=== PATIENT | male | born 1960 | race Two or more races ===

== ENCOUNTER 2016-12-11 20:35 | Emergency (ER) | payer MEDICAID ==
[2016-12-11] MEDS ORDERED: BENZONATATE 100 MG CAPSULE PO ONE (21:16)
[2016-12-11] MEDS ORDERED: OXYCODONE HCL IR 5 MG TABLET PO ONE (21:16)
--- NOTE | 2016-12-11 21:20 | ER Document Report ---
ED General - General Chief Complaint: Cough Stated Complaint: ABDOMINAL PAIN/LOSS OF APPETITE Time Seen by Provider: 12/11/16 21:08 Notes: Patient is a 56-year-old male who comes emergency department for chief complaint of cough, he states he has had this for several days, he has coughing episodes where he feels short of breath, he states when he is not coughing he is not short of breath. He has felt some chills. Denies past medical history of pneumonia. Past medical history of liver failure, on Lasix and Spironolactone, hypertension takes tramadol for pain. He reports some abdominal pains but states these are chronic. He denies chest pain, vomiting, abdominal or leg swelling. He is visiting friends, he is from [place]. He has a friend at bedside. Patient speaks Syriac fluently. TRAVEL OUTSIDE OF THE [place] IN LAST 30 DAYS: No - Related Data Home Medications: Current Home Medications Furosemide [Furosemide] 20 mg PO DAILY 12/11/16 [History] Nadolol [Nadolol] 20 mg PO DAILY 12/11/16 [History] Propranolol HCl [Inderal 20 mg Tablet] 10 mg PO DAILY 12/11/16 [History] Ranitidine HCl 150 mg PO BID 12/11/16 [History] Spironolactone [Spironolactone] 25 mg PO DAILY 12/11/16 [History] Tramadol HCl [Tramadol HCl] 50 mg PO BID PRN 12/11/16 [History] Past Medical History - General Information source: Patient - Social History Smoking Status: Former Smoker Frequency of alcohol use: None Drug Abuse: None Lives with: Family Family History: Reviewed & Not Pertinent Patient has suicidal ideation: No Patient has homicidal ideation: No - Past Medical History Cardiac Medical History: Reports: Hx Hypertension Renal/ Medical History: Denies: Hx Peritoneal Dialysis GI Medical History: Reports: Hx Liver Failure Surgical Hx: Negative - Immunizations Hx Diphtheria, Pertussis, Tetanus Vaccination: Yes Review of Systems - Review of Systems Constitutional: No symptoms reported EENT: No symptoms reported Cardiovascular: See HPI Respiratory: See HPI Gastrointestinal: No symptoms reported Genitourinary: No symptoms reported Male Genitourinary: No symptoms reported Musculoskeletal: No symptoms reported Skin: No symptoms reported Hematologic/Lymphatic: No symptoms reported Neurological/Psychological: No symptoms reported Physical Exam - Vital signs Vitals: Temp Pulse Resp BP Pulse Ox 99.1 F 78 17 118/75 93 12/11/16 20:47 12/11/16 20:47 12/11/16 20:47 12/11/16 20:47 12/11/16 20:47 Interpretation: Normal - General General appearance: Appears well, Alert In distress: None - alert and well appearing - HEENT Head: Normocephalic, Atraumatic Eyes: Normal Conjunctiva: Normal Extraocular movements intact: Yes Eyelashes: Normal Pupils: PERRL Mouth/Lips: Normal Mucous membranes: Normal Pharynx: Normal Neck: Normal - Respiratory Respiratory status: No respiratory distress. No: Respiratory distress, Labored , Pursed lip breathing, Tachypnea Chest status: Nontender. No: Tender Breath sounds: Nonproductive cough - occassional mild cough. No: Decreased air movement, Rales, Rhonchi, Stridor, Wheezing Chest palpation: Normal - Cardiovascular Rhythm: Regular. No: Tachycardia Heart sounds: Normal auscultation, S1 appreciated, S2 appreciated Murmur: No - Abdominal Inspection: Normal Distension: No distension Bowel sounds: Normal Tenderness: Nontender Organomegaly: No organomegaly - Back Back: Normal, Nontender - Extremities General upper extremity: Normal inspection, Nontender, Normal color, Normal ROM , Normal temperature General lower extremity: Normal inspection, Nontender, Normal color, Normal ROM , Normal temperature, Normal weight bearing. No: Jane's sign - Neurological Neuro grossly intact: Yes Cognition: Normal Orientation: AAOx4 [place] Coma Scale Eye Opening: Spontaneous [place] Coma Scale Verbal: Oriented [place] Coma Scale Motor: Obeys Commands [place] Coma Scale Total: 15 Speech: Normal Motor strength normal: LUE, RUE, LLE, RLE Sensory: Normal - Psychological Associated symptoms: Normal affect, Normal mood - Skin Skin Temperature: Warm Skin Moisture: Dry Skin Color: Normal Course - Re-evaluation Re-evalutation: EKG with borderline left axis deviation, no ischemic changes or abnormalities noted, cardiac enzymes negative. Chemistry generally unremarkable. CBC shows some leukopenia although absolute neutrophils are not low, some anemia, nonspecific. Chest x-ray showing left lower lobe patchy infiltrate consistent with pneumonia , this is consistent with patient's clinical presentation. Given Levaquin. Blood cultures pending. Patient asking to go home. Patient with slightly low oxygen levels at 93-94% on room air, patient with occassional coughing episodes but no distress, however lungs are clear to auscultation, patient has no tachypnea or labored breathing, and patient ambulates without any difficulty. Well appearing patient. Blood pressure is borderline low. Patient was initially medicated for symptoms, then hours later (CBC hemolyzed twice) given a dose of Levaquin. Patient states he feels normal now, states he feels good and he wants to leave to be medicated at home. Patient was ambulated further, oxygen did drop down into the 80s, although patient had no labored breathing, no tachypnea, actually appeared excellent doing so. Unsure of patient's baseline. He is unsure as well, but he states he felt good, did well. He honestly appears clinically normal. Discussed admission for pneumonia but patient states he does not want to be admitted, he wants to be treated with antibiotics at home, and if he feels worse he will return. Discussed at length, patient states he will return if he worsens in any way. - Vital Signs Vital signs: Temp Pulse Resp BP Pulse Ox 97.9 F 68 16 95/66 L 94 12/12/16 00:18 12/12/16 00:18 12/12/16 00:18 12/12/16 02:01 12/12/16 00:42 - Laboratory Result Diagrams: 12/11/16 23:11 12/11/16 21:40 Laboratory results interpreted by me: 12/11/16 12/11/16 21:40 23:11 WBC 2.9 L Hgb 10.7 L Hct 34.3 L MCV 71 L MCH 22.1 L MCHC 31.3 L RDW 22.0 H Seg Neuts % (Manual) 39 L Band Neutrophils % 1 L Abs Neuts (Manual) 1.2 L Creatine Kinase 28 L Discharge - Discharge Clinical Impression: Cough Pneumonia Qualifiers: Pneumonia type: due to unspecified organism Laterality: left Lung location: lower lobe of lung Qualified Code(s): J18.1 - Lobar pneumonia, unspecified organism Disposition: HOME, SELF-CARE Additional Instructions: Workup is consistent with pneumonia. Take the Levaquin antibiotic as prescribed. Rest. Continue current medications. Follow up with Primary Care. Return to the ED if you develop any concerning or worsening symptoms - difficulty breathing, chest pain, vomiting, spiking fever, etc. Prescriptions: Doxycycline Hyclate 100 mg PO BID #14 capsule
--- NOTE | 2016-12-11 22:03 | RADIOLOGY REPORT (SQ) ---
EXAM DESCRIPTION: CHEST PA/LAT COMPLETED DATE/TIME: 12/11/2016 9:54 pm REASON FOR STUDY: persistent cough, short of breath COMPARISON: None. EXAM PARAMETERS: NUMBER OF VIEWS: two views TECHNIQUE: Digital Frontal and Lateral radiographic views of the chest acquired. RADIATION DOSE: NA LIMITATIONS: none FINDINGS: LUNGS AND PLEURA: Patchy left lower lobe airspace disease. Lungs and pleural spaces other bullard clear. MEDIASTINUM AND HILAR STRUCTURES: No masses or contour abnormalities. HEART AND VASCULAR STRUCTURES: Heart normal size. No evidence for failure. BONES: No acute findings. HARDWARE: None in the chest. OTHER: No other significant finding. IMPRESSION: PATCHY LEFT LOWER LOBE AIRSPACE DISEASE SUSPICIOUS FOR PNEUMONIA. RECOMMEND FOLLOWUP RA DIOGRAPHS 4 TO 6 WEEKS TO ENSURE RESOLUTION. TECHNICAL DOCUMENTATION: JOB ID: [id number] [employer]- All Rights Reserved
[2016-12-11 22:20] LABS: ALANINE AMINOTRANSFERASE 25 U/L (21-72); ALBUMIN 3.8 g/dL (3.5-5.0); ALKALINE PHOSPHATASE 61 U/L (38-126); ANION GAP 12 (5-19); ASPARTATE AMINO TRANSFERASE 30 U/L (17-59); BILIRUBIN,DIRECT 0.3 mg/dL (0.0-0.4); BILIRUBIN,TOTAL 0.6 mg/dL (0.2-1.3); BLOOD UREA NITROGEN 8 mg/dL (7-20); CARBON DIOXIDE 22 mmol/L (22-30); CHLORIDE 103 mmol/L (98-107); CREATINE KINASE 28 U/L (55-170); CREATININE RESULT 0.96 mg/dL (0.52-1.25); GLUCOSE 88 mg/dL (75-110); POTASSIUM 4.1 mmol/L (3.6-5.0); SODIUM 137.3 mmol/L (137-145); TOTAL PROTEIN 7.9 g/dL (6.3-8.2)
[2016-12-11 22:33] LABS: TROPONIN I < 0.012 ng/mL
[2016-12-11 23:22] LABS: HEMATOCRIT 34.3 % (37.9-51.0); HEMOGLOBIN 10.7 g/dL (13.5-17.0); HGB HCT DIFFERENCE -2.2; MEAN CORPUSCULAR HEMOGLOBIN 22.1 pg (27.0-33.4); MEAN CORPUSCULAR HGB CONC 31.3 g/dL (32.0-36.0); MEAN CORPUSCULAR VOLUME 71 fl (80-97); RED BLOOD COUNT 4.86 10^6/uL (4.35-5.55); WHITE BLOOD COUNT 2.9 10^3/uL (4.0-10.5)
[2016-12-11] MEDS ORDERED: LEVOFLOXACIN 750 MG/D5W RTU 150 ML IV ONE (23:45)
[2016-12-12 00:01] LABS: BAND NEUTROPHILS % (MANUAL) 1 % (3-5); BASOPHILS % (MANUAL) 0 % (0-2); EOSINOPHILS % (MANUAL) 3 % (0-6); LYMPHOCYTES % (MANUAL) 42 % (13-45); TOTAL CELLS COUNTED 100
[2016-12-12 00:07] LABS: ANISOCYTOSIS 3+; BURR CELLS SLIGHT; HYPOCHROMASIA 1+; MICROCYTOSIS 2+; OVALOCYTES 1+; POIKILOCYTOSIS 2+; POLYCHROMASIA SLIGHT; TEAR DROP CELLS SLIGHT; TOXIC GRANULATION 1+; TOXIC VACUOLATION PRESENT
[2016-12-12 02:21] VITALS: BP 95/66
--- NOTE | 2016-12-12 08:20 | EKG REPORT ---
SEVERITY:- BORDERLINE ECG - SINUS RHYTHM BORDERLINE LEFT AXIS DEVIATION NONSPECIFIC ST-T CHANGES- INFERIOR LEADS : Confirmed by: Blaze Dickson MD 12-Dec-2016 08:19:26
== END 2016-12-12 02:15 | disposition home or self-care (01) ==
LOC: EDBD 20:35 → ER 20:35
DX: J18.1 Lobar pneumonia, unspecified organism (principal); R05 Cough; R10.9 Unspecified abdominal pain; R63.0 Anorexia; Z79.899 Other long term (current) drug therapy; Z87.891 Personal history of nicotine dependence
CPT/HCPCS: 93005; 99284; 96365; 96366; 36415; 87040; 82553; 82550; 85025; 87077; 80053; 84484; 87186; 71020; 93010; J1956